=== PATIENT | male | born 1975 | race Caucasian/White ===

== ENCOUNTER 2017-10-05 04:17 | Emergency (ER) | payer SELFPAY ==
--- NOTE | 2017-10-05 04:17 | DT_ITS ---
This patient was seen during an EMR downtime October 02, 2017 - October 09, 2017. This patient may have a combination of paper and electronic documentation or all paper documentation. All documentation is viewable within the e-chart portion of [facility] for each patient visit.
== END 2017-10-05 05:15 | disposition home or self-care (01) ==
PROVIDERS: Emergency Provider Emergency Medicine
DX: S39.012A Strain of muscle, fascia and tendon of lower back, initial encounter (principal); X58.XXXA Exposure to other specified factors, initial encounter; Y93.89 Activity, other specified; I10 Essential (primary) hypertension; Z72.0 Tobacco use
CPT/HCPCS: 96372; 99282; J2405

== ENCOUNTER 2017-10-06 06:47 | Emergency (ER) | payer SELFPAY ==
--- NOTE | 2017-10-06 06:47 | DT_ITS ---
This patient was seen during an EMR downtime October 02, 2017 - October 09, 2017. This patient may have a combination of paper and electronic documentation or all paper documentation. All documentation is viewable within the e-chart portion of [facility] for each patient visit.
--- NOTE | 2017-10-06 07:35 | RAD_ITS ---
STUDY: X-RAY - PELVIS AND LEFT HIP REASON FOR EXAM: Male, 42 years old. Pain after moving furniture. TECHNIQUE: Radiological exam, hip, unilateral, with pelvis when performed; 2 or 3 views. COMPARISON: None. FINDINGS: There is a non-specific bowel gas pattern. Normal visualized soft tissue structures. There are mild degenerative changes of the visualized lower lumbar spine. There is narrowing with cortical sclerosis of the lower right sacroiliac joint, consistent with degenerative osteoarthritic changes. Normal iliac wings and visualized sacrum. Normal bilateral superior and inferior pubic rami. Normal pubic symphysis. Normal bilateral ischial tuberosities. There are early osteoarthritic changes of the femoral head with very small marginal osteophyte formation. There is minor osteoarthritic spur formation of the acetabular rim. There is mild to moderate articular joint space narrowing of the hip. There is no demonstrated acute fracture. RAD/Hip 2-3 Views with Pelvis IMPRESSION: No fracture of the pelvis or left hip. There are mild degenerative changes of the spine and pelvis, as described. Electronically Signed: Sascha Mcintosh MD at 13:08 EDT , Service support ,
--- NOTE | 2017-10-06 07:35 | RAD_ITS ---
STUDY: X-RAY - LUMBAR SPINE REASON FOR EXAM: Male, 42 years old. Pain after moving temperature. TECHNIQUE: 3 view(s) of the lumbar spine were obtained. COMPARISON: None FINDINGS: Normal lumbar lordosis. There is a 6.5 degree levoscoliosis centered at L3-4. There is a normal alignment of the vertebrae. There are large anterior endplate osteophytes at L3-4, with more minor anterior endplate spurring at L2-3, L4-5, and L5-S1. There is mild to moderate degenerative disc height narrowing at L3-4, as well as borderline to mild narrowing at L4-5 and L5-S1. There is no demonstrated fracture. Degenerative changes suggested in the L4-5 and L5-S1 facet articulations as well as the lower right sacroiliac joint. The soft tissue structures are unremarkable. RAD/Lumbar Spine 2 or 3 Views IMPRESSION: No acute fracture of the lumbar spine. Degenerative changes of the spine, as detailed above. Electronically Signed: Sascha Mcintosh MD at 13:06 EDT , Service support ,
== END 2017-10-06 08:30 | disposition home or self-care (01) ==
LOC: ED 12:36
DX: M54.5 Low back pain (principal); Z72.0 Tobacco use
CPT/HCPCS: 72100; 73502; 96372; 99282

== ENCOUNTER 2018-06-24 08:38 | Emergency (ER) | payer OTHER, SELFPAY ==
[2018-06-24 08:39] VITALS: BP 152/92; PULSE 106; RESP 16; TEMP 36.4; O2SAT 97; BMI 42.2
--- NOTE | 2018-06-24 09:01 | ED.DCSUM_ITS ---
- ER Visit Summary Date of Service: 06/24/18 Chief Complaint: Left posterior shoulder and left lateral neck discomfort History of Present Illness: The patient is a 42 M past medical history of hypertension. Patient comes in because he says for the last 2-3 weeks he has had left lateral neck and left posterior shoulder discomfort. States it feels like a sore muscle. It is worse with movement of his shoulder or rotation of his neck. He denies any falls or trauma. No fever. No prior neck neck surgery . He denies any numbness or weakness to his left arm. He also states he wants to be set up with a primary care physician. He is currently out of his hydrochlorothiazide that he takes for hypertension. And lastly he was to follow-up with the counseling center for outbursts and depression but denies being suicidal. Physical Examination: Well-appearing middle-age male. Initial blood pressure is 152/92. He does not look septic or toxic or in any distress. He is awake alert. He is talkative. His significant other is at bedside. HEENT exam unremarkable. Neck mild left lateral trapezius tenderness. Spine nontender. Normal range of motion. Trachea midline. No lymphadenopathy. Lungs clear to auscultation bilaterally. Heart regular rate and rhythm no murmur rate about 90. Abdomen soft and nontender. Normal bowel sounds. No peritoneal signs. Patient is moving all 4 extremities. Neurovascularly intact. He has 5 out of 5 instructor ballroom dancing strength. Dorsi plantar flexion intact. No edema specifically the left shoulder posteriorly is soft tissue tenderness. There is no gross bony deformity. No redness or warmth. He has full AB and adduction of the shoulder. He has normal internal and external rotation. He has some discomfort with rotation of the shoulder. There is no signs of a rotator cuff tear. Back exam there is no spine tenderness. There is left trapezius and posterior shoulder tenderness. Neurologically is awake alert with no focal motor weakness. Test Results: None Emergency Department Course and Treatment: Patient referred to a PCP. He will be referred to the counseling center. He will be written for hydrochlorothiazide for his hypertension. He will be written for Skelaxin for his muscle spasm in his neck and left shoulder. Treatment Plan: Skelaxin for muscle relaxation. Hydrochlorothiazide for blood pressure. Disposition: Discharge Impression: Left shoulder and neck muscle strain and spasm Med refill for antihypertension medication Referral to PCP and counseling center This note was generated with [employer] dictation software. It may contain incorrect words, spelling, and punctuation that were not noted in review of the chart prior to signing ED Disposition - Plan for ED Patient: Referrals: Care Physician,No Primary [Primary Care Provider] -
--- NOTE | 2018-06-24 09:01 | ED.DEP ---
ED Disposition - Plan for ED Patient: Disposition: Home or Assisted Living Instructions: ED Sprain Strain Neck Prescriptions: Hydrochlorothiazide [Hctz] 25 mg PO DAILY #30 tab Metaxalone [Skelaxin] 800 mg PO TID #20 tab Referrals: David Verduzco MD [STAFF PHYSICIAN] - As soon as possible Counseling,Center [GROUP OF PHYSICIANS] - As soon as possible Additional Instructions: Stop smoking. Skelaxin 1 pill 3 times a day to relax the muscles in your neck and left shoulder. Motrin and Tylenol for pain. Hydrochlorothiazide medication refill for your blood pressure. Follow-up with the counseling center. On follow-up with a local primary care physician I referred you to Dr. Vaibhav Verduzco.
== END 2018-06-24 09:14 | disposition home or self-care (01) ==
LOC: ED 09:13
PROVIDERS: Emergency Provider Emergency Medicine
DX: S46.912A Strain of unspecified muscle, fascia and tendon at shoulder and upper arm level, left arm, initial encounter (principal); S16.1XXA Strain of muscle, fascia and tendon at neck level, initial encounter; X58.XXXA Exposure to other specified factors, initial encounter; Y93.9 Activity, unspecified; Y92.9 Unspecified place or not applicable; M62.838 Other muscle spasm; Z76.0 Encounter for issue of repeat prescription; I10 Essential (primary) hypertension; Z72.0 Tobacco use
CPT/HCPCS: 99282

== ENCOUNTER 2018-06-29 08:49 | Outpatient (RCR) | payer OTHER, SELFPAY ==
--- NOTE | 2018-06-29 10:56 | BH.NA ---
Physical Data - Vital Signs Pulse Rate: 108 Respiratory Rate: 16 Blood Pressure: 137/100 - Height/Weight Height: 1.85 m Weight:: 147.418 kg Weight in Pounds: 325.0 lbs Current Medication Compliance - Medication Compliance Do you take your medication as prescribed?: Yes Do you need assistance with taking medication?: No Have you had side effects from medication?: No Nutritional History - Appetite Nutritional Instructions:: If client shows signs of a swallowing problem, weight change of 10 pounds or more in the last month, or is on a diabetic diet, the physician will review and request a dietitian consult, as appropriate. All unintentional weight loss will be referred to the physician for decision on need for dietitian consult. Describe your appetite:: Fair Have you noticed a change in your eating habits lately?: No Functional Assessment - Sleep Pattern Describe any problems with sleeping: Client reports difficulty falling and staying asleep related to ruminating and racing thoughts. - Activities Motor Activity:: Functional Sensory/Communication Assess - Hearing Problems Do you have any hearing problems?: Adequate - Communication Problems Do you have difficulty understanding what people are saying?: No Do you have trouble putting your thoughts into words or expressing what you want to say?: Yes Do people ever have trouble understanding what you say?: No What is your primary language?: Slovenian Learning Assessment - Education What is your level of education?: Some College - Learning Barriers Learning Barriers:: Ready to learn Medical Problems/History - Cardiac Conditions Cardiovascular: Hypertension - Pain Assessment Do you have acute or chronic pain?: No Substance Abuse - Substance Abuse Please describe substance abuse in the last 30 days:: Client describes daily marijuana use. 1ppd cigarettes daily. Rare ETOH use. Suicide Assessment - Suicidal Ideation Are you currently or have you been suicidal in the past?: No Physician Notification: If Active suicidal thoughts/Will not contract for safety is checked, contact physician and document in the Physician Notification section below. Past Psychiatric History - MH Treatment Hx Current providers for mental health treatment (counselor, psychiatrist, correctional counselor/case manager, etc.): No prior treatment Fall Risk Assessment - Age Age: Less than 60 - Mental Status Mental Status: Willing & able to ask for assistance when needed - Physical Status Physical Status: No problems - Impairments Impairments: None - Elimination Elimination: Continent AND independent - Gait or Balance Gait or Balance: Walks independently - Hx of Falls History of falls in the past 6 months: No known history - Medications/Substances Psychotropics:: Antidepressants Others:: Antihypertensives Medications/substances used within the past 24 hours or ordered to administer: 1-2 of the medications/substances listed above - Total Score Total Points:: 1 Physician Notification - Physician Notification Physician Notified: Seven Verma Method of Notification: Face to Face Comments: treatment planning recommendations RN Summary of Impressions - Impressions Recommendations: Include psychiatric and medical issues, treatment planning recommendations, and discharge planning needs. Impressions: Psychiatric Issues: MDD, anxiety Impression: General Medical Conditions: HTN, morbid obesity, insomnia - Level of Care How do the client's current symptoms and functional deficits support need for this level of care?: Anthony notes that he has been decompensating for approximately 4 weeks. He notes that this comes after recently from his and not having any contact with his daughter. His mental health symptoms are adversely effecting his ability to work, thus his financial state. He describes poor motivation, isolative behaviors, and decreased ADLs. Client also describes social anxiety, something new for him, and anger outbursts over the littlest thing, which he notes is also out of character for him. IOP will provide social support and encourage gains.
--- NOTE | 2018-06-29 11:35 | BH.SGPN.GN ---
Behaviors/Verbalizations/Mental Status: []Client alert and oriented, casual dress, hygiene good. Eye contact good. Motor activity appropriate. Speech within normal limits. Affect congruent, mood anxious and depressed. Thoughts linear, logical, no signs of hallucinations or delusions. Client Response/Progress/Benefit: []Client listened attentively to peers and at times contributed to discussion if elicited pt therapist. Client identified his personal barriers that get in the way of him reaching his desired reality for mental health to be over-thinking, isolating, and depression. Client worked cooperatively with peers during activity, but did not contribute his thoughts when brainstorming strategies to overcome barriers. Client seemed to benefit from learning about various strategies that can help overcome barriers to progress. Client's first day in IOP, which could contribute to pt's passive participation. Client to continue IOP level of care to decrease depression, increase healthy coping, and prevent decompensation. Narrative Note: []
--- NOTE | 2018-06-29 12:16 | PCM.HP.BLA ---
History and Physical Date of Admission: 06/29/18 Chief Complaint: The patient is a 42-year old male who is beginning treatment in the intensive outpatient mental health treatment program at [facility]. He reports worsening depression and anxiety as well as insomnia. History of Present Illness: The patient stated that he has had smaller episodes of depression before which lasted 1 or 2 days. However, over the past 2-3 months he has become increasingly depressed and his depression is not going away. His depression worsened to the point where he could not continue working. He is now depressed every day. His sleep is poor. His appetite has decreased but his weight is steady. He has low energy and no motivation. He denies crying spells. He is not able to enjoy things in life. He has been very irritable. He said he recently flew off the handle at his brother for no good reason and has also had angry outbursts directed towards his girlfriend, even though she did not deserve it. His concentration is poor. He does have hope for the future and he denied suicidal thoughts. The patient also reports worsening anxiety over the past few months. He has not wanted to be around people and being around more than a few people makes him anxious. Previously was doing just fine being around people. Past Psychiatric History: The patient has never been admitted to a psychiatric hospital and he denies any history of suicide attempts. He has never previously received any mental health treatment. Current Psychiatric Medications: None Medical History: The patient is obese. He has hypertension treated with medication, and also takes a water pill. Allergies no known drug allergies Family Psychiatric History: The patient was adopted. He is not aware of any mental health problems in his biological family. Personal/Social History: The patient was adopted when he was 6-8 months years old. He has no information about his biological family. He said that his adoptive mother was kind and his adoptive father was strict. He has an adoptive sister. He went up to the 10th grade in school but did obtain a GED. 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 He said he usually loves his job. Heis working for [employer]. He was not able to continue working about a week ago because of depression. He did not want to leave the home and had no motivation to continue working. The patient has been from his for the past 8years. He has been together with his girlfriend for the past 3 years. He said that the relationship was good before he developed depression. Has recently been aggressively irritable toward her. He said that she does not deserve this irritability. He has 3 children and 2 grandchildren. He pays child support for a 9-year-old daughter is living with her mother. He also has an 18-year-old and a 21-year-old from a previous relationship. Substance abuse history: The patient says that he was a heavy drinker from about 1994 until 1999. He now only drinks occasionally and not to excess. He started smoking marijuana when he was younger. His use has increased over the past few months as a way to self medicate. He denies use of any other illegal drugs. Review of Systems: Psychiatry: Worsening depression and anxiety as per HPI. He is not suicidal. There is no psychosis. He is cognitively intact. Constitutional: He is obese and his weight has been steady. His energy level is low. He also has hypertension and neck pain. All other systems reviewed and are negative. Examination: The patient presents as a pleasant, personable male of obese build who wears short hair and glasses. He demonstrates good social skills. Vital signs: Height: 6 foot 1 inch; weight 325 pounds; respirations 16. His speech is fluent and spontaneous. His language is intact. His judgment and insight are intact. He is alert and oriented x3. His affect is cordial and appropriate. His recent and remote memory are intact. He demonstrates normal attention span and concentration. He has normal thought processes and abstract reasoning. His associations are intact. There are no hallucinations or delusions and he is not suicidal. He demonstrates normal age-appropriate fund of knowledge. Mental Status Examination: The patient presents as a pleasant, personable male of obese build who is casually dressed and appropriately groomed. He demonstrates good social skills. His thoughts are logical and coherent. He reported worsening depression and anxiety as per HPI. He is not suicidal. There is no psychosis. He is cognitively intact. Diagnoses: [] [place] I: Major depression, single episode, severe; anxiety disorder and specified; insomnia [place] II: Deferred [place] III: Obesity, hypertension Plan: I am prescribing Prozac 10 mg every morning and trazodone 100 mg nightly as needed. Patient will participate in the intensive outpatient groups. I will see him for follow-up.
--- NOTE | 2018-06-29 12:42 | HP.PCM_ITS ---
History and Physical Date of Admission: 06/29/18 Chief Complaint: The patient is a 42-year old male who is beginning treatment in the intensive outpatient mental health treatment program at [facility] He reports worsening depression and anxiety as well as insomnia. History of Present Illness: The patient stated that he has had smaller episodes of depression before which lasted 1 or 2 days. However, over the past 2-3 months he has become increasingly depressed and his depression is not going away. His depression worsened to the point where he could not continue working. He is now depressed every day. His sleep is poor. His appetite has decreased but his weight is steady. He has low energy and no motivation. He denies crying spells. He is not able to enjoy things in life. He has been very irritable. He said he recently flew off the handle at his brother for no good reason and has also had angry outbursts directed towards his girlfriend, even though she did not deserve it. His concentration is poor. He does have hope for the future and he denied suicidal thoughts. The patient also reports worsening anxiety over the past few months. He has not wanted to be around people and being around more than a few people makes him anxious. Previously was doing just fine being around people. Past Psychiatric History: The patient has never been admitted to a psychiatric hospital and he denies any history of suicide attempts. He has never previously received any mental health treatment. Current Psychiatric Medications: None Medical History: The patient is obese. He has hypertension treated with medication, and also takes a water pill. Allergies no known drug allergies Family Psychiatric History: The patient was adopted. He is not aware of any mental health problems in his biological family. Personal/Social History: The patient was adopted when he was 6-8 months years old. He has no information about his biological family. He said that his adoptive mother was kind and his adoptive father was strict. He has an adoptive sister. He went up to the 10th grade in school but did obtain a GED. 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 He said he usually loves his job. Heis working for [employer]. He was not able to continue working about a week ago because of depression. He did not want to leave the home and had no motivation to continue working. The patient has been from his for the past 8years. He has been together with his girlfriend for the past 3 years. He said that the relationship was good before he developed depression. Has recently been aggressively irritable toward her. He said that she does not deserve this irritability. He has 3 children and 2 grandchildren. He pays child support for a 9-year-old daughter is living with her mother. He also has an 18-year-old and a 21-year-old from a previous relationship. Substance abuse history: The patient says that he was a heavy drinker from about 1994 until 1999. He now only drinks occasionally and not to excess. He started smoking marijuana when he was younger. His use has increased over the past few months as a way to self medicate. He denies use of any other illegal drugs. Review of Systems: Psychiatry: Worsening depression and anxiety as per HPI. He is not suicidal. There is no psychosis. He is cognitively intact. Constitutional: He is obese and his weight has been steady. His energy level is low. He also has hypertension and neck pain. All other systems reviewed and are negative. Examination: The patient presents as a pleasant, personable male of obese build who wears short hair and glasses. He demonstrates good social skills. Vital signs: Height: 6 foot 1 inch; weight 325 pounds; respirations 16. His speech is fluent and spontaneous. His language is intact. His judgment and insight are intact. He is alert and oriented x3. His affect is cordial and appropriate. His recent and remote memory are intact. He demonstrates normal attention span and concentration. He has normal thought processes and abstract reasoning. His associations are intact. There are no hallucinations or delusions and he is not suicidal. He demonstrates normal age-appropriate fund of knowledge. Mental Status Examination: The patient presents as a pleasant, personable male of obese build who is casually dressed and appropriately groomed. He demonstrates good social skills. His thoughts are logical and coherent. He reported worsening depression and anxiety as per HPI. He is not suicidal. There is no psychosis. He is cognitively intact. Diagnoses: [] [place] I: Major depression, single episode, severe; anxiety disorder and specified; insomnia [place] II: Deferred [place] III: Obesity, hypertension Plan: I am prescribing Prozac 10 mg every morning and trazodone 100 mg nightly as needed. Patient will participate in the intensive outpatient groups. I will see him for follow-up.
--- NOTE | 2018-06-29 12:42 | BH.DR.ITP ---
Initial Treatment Plan - Patient Information Visit Information: ADMISSION DATE: 06/29/18 EXPECTED LOS: 4-6 weeks Diagnoses:: Major depression; anxiety disorder unspecified - Problems/Symptoms Problem #1:: depression Symptom:: low mood; lack of motivation; irritability Problem #2:: anxiety Symptom:: gets stressed out easily around groups of people; feels anxious
--- NOTE | 2018-07-02 09:03 | BH.SGPN.GN ---
Behaviors/Verbalizations/Mental Status: []Client alert and oriented, casually dressed and neatly groomed. Eye contact good. Motor activity appropriate. Speech tangential. Affect full, mood euthymic. Thoughts linear, logical, no signs of hallucinations or delusions. Reviewed client?s symptom tracker, no risk for suicidal ideation, plan, or intent as of 07/02/18. Client Response/Progress/Benefit: []Client responded well to session, positive and supportive to peers. Client reports feeling excited today after multiple mental health wins this weekend. Client shared the weekend started bad as client got fired from his job. However, client shared normally I would have cussed someone out but instead client used healthy coping skills and distracted himself with cooking and breathing. 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 Client stated I really appreciate the people who were here in group Monday as client shared all the ideas and support he received helped client be successful in coping well over the weekend. Client appeared to benefit from connecting with peers and reflecting on his positives. Progress noted as client reported using healthy coping skills this weekend. Client's second day in IOP. Client to continue to promote mood stability and increase emotional regulation.
--- NOTE | 2018-07-02 10:15 | BH.PSA ---
Source of Information - Presenting Problems/Circumstances Problems, Referral Source, Mental Status, Client: Referred by [facility] due to worsening depression and MH symptoms impacting ability to function on a daily basis. Alert and oriented. Psychiatric Presentation - Psych Issues & Need for Admission Psychiatric Issues:: Depression, anxiety, anger management issues, insomnia Past Psychiatric History - MH Treatment Hx Treatment History: Pt reports anger management classes in 1993. First hospitalization:: denies Most recent hospitalization:: denies Medication Trials:: No ECT Therapy:: No Age of first mental health symptoms: Pt reports looking back I've mostly likely been depressed for several years. Reports anger issues, isolation, and depression throughout his life. Describe (age, circumstance, etc) any past hospitalizations: n/a Current providers for mental health treatment (counselor, psychiatrist, case picker, etc.): none currently Development & Family of Origin - Childhood Significant Childhood Events: Pt was adopted when he was 6-8 months. Does not know his biological parents. Denies any abuse however reports conflicted realtionship with his father who was very strict, demanding, and at times overbearing. - Family Who currently lives in your home?: Currently lives with fiance and pt's adopted brother Describe family composition:: Adopted when pt was 6-8 months old. Adopted mother is . Adopted father is alive however conflicted relationship. Live with adopted brother who is older. Remains close with younger adopted sister. from 8 years ago. Has 3 children 9,18, and 21. The children live with thier mother. - Family History Family Hx of Psychiatric or AOD Problems: adopted Ethnicity - Culture Do you identify yourself with any particular cultural, ethnic background, or community?: No - Sexuality Sexual Orientation: Heterosexual Spirituality - Yazidi Do you currently identify with any organized jewish?: None - Beliefs Is there a particular form of support from this community you can use for your recovery?: No Mental Status - Memory Recent Memory: Fair Remote Memory: Fair - Concentration Concentration: Fair - Eye Contact Eye Contact: Fair - Speech Speech: Articulate - Thought Process Thought Process: Logical, Ruminations Insight: Fair Judgment: Fair Behavior: Normal - Orientation Orientation: Time, Person, Place, Situation - Appearance Appearance: Disheveled - Mood Mood: Anxious, Depressed, Mood swings, Irritable - Affect Affect: Alert, Appropriate/calm Suicide Assessment - Suicidal Ideation Have you ever felt like hurting yourself?: No Were you using ETOH/drugs at the time?: No Suicidal Intentional Rating Scale (SIRS): No suicidal thoughts (past or present) Physician Notification: If Active suicidal thoughts/Will not contract for safety is checked, contact physician and document in the Physician Notification section below. Violent Behavior/Abuse History - Homicidal Ideation Do you have any homicidal thoughts? If so, explain:: No Is there a known potential victim? If yes, who:: No - Abuse Have you ever been abused?: No - Life Events Are there any other significant life events?: Financial loss, Hardships Describe significant life events: Pt learned on 06/29/18 that he was terminated from his job due to not showing up due to MH symptoms. - Safety Do you ever feel threatened in your home? If yes, describe:: No Adult Social History - Age 18 to Present Describe your current support system:: Adopted brother and fiance. Substance Use - Substance Substance Use Type: Alcohol, Marijuana - Specific Drugs What specific drugs have you used?: Alcohol and Cannabis - Extent of Use What quantity of substances have you used?: Reports daily use of cannabis and alcohol use in social situations. Reports alcohol use about 1x weekly. - Duration of Use How long have you used substances?: Reports that he was a heavy drinker between 1994- 1999. Has been smoking cannabis and drinking alcohol since he was younger. - Last Usage What is the date and situation you last used?: Cannabis- yesterday. Alcohol- last week - Withdrawal History Comments:: denies withdrawal symptoms - IV Substance Use Do you have a history of IV use?: denies Leisure/Social Activities - Interests What do you enjoy or might be interested in learning about?: Ways to improve communication. Reports interested in decreasing anger and increasing assertive communication. 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 If yes, describe:: Yes - 5 months on [facility] - Court Orders Have you had any past court orders for psychiatric treatment?: No Do you have a present court order for psychiatric treatment?: No Problem Checklist - Current Problem Areas Problem List: Depressed mood/sad, Anxiety, Anger/aggression, Impulsivity, Sleep problems, Additional psychosocial stressors - recently lost job Discharge Planning Needs - Anticipated Follow-Up Mental Health Center (Name/Phone Number):: [facility] Assessment - Client's Needs What are the client's feelings about the program?: Pt reports that he enjoys the support and education in the program. Looking forward to learning. What are the client's goals?: Decrease isolative behaviors. Increase motivation and social activities. Improve communication with other. Anger mgmt What are the client's strengths?: good trouble-shooter. good at being a office mover Diagnoses - Diagnoses Diagnosis #1:: Major Depressive Disorder, single, severe Diagnosis #2:: Anxiety Disorder, unspecified Interpretive Summary - Interpretive Summary Interpretive Summary: Pt is a 42 year old male. Hx of Depression per pt report. No previous psychiatric treatment. Worsening depression for the past 4 weeks which as led to inability to work. Due to depression pt has missed the last week of work. Reports depressive symptoms also impacting relationships and social functioning. Pt reports I can't fix myself ... I lay in bed all day. Endorses decreased sleep, no energy, no motivation, decreased concentration, decreased focus, increased irritability, anger outbursts, no pleasure in activities, and hoplessness. Denies suicidal ideations, plan, or intent. No hx of attempts. Pt states I'm not suicidal but I feel it may get there. Informed employer that due to emotions he is unable to work. Referred to IOP by crisis. Denies HI or psychosis. Occasional panic attacks. Treatment Plan Recommendations - Recommendations Guidelines: Special needs identified to be included in the development of an individualized treatment plan regarding past psychiatric history and treatment, developmental events, family relationships/events/culture, past and/or current educational, occupational, social, and residential experience, and legal status. Recommendations:: Based on worsening depression, MH symptoms interfering with social familial, and work functioning, and decreased ability to function recommended IOP level of care.
--- NOTE | 2018-07-02 11:59 | BH.PSA_ITS ---
Source of Information - Presenting Problems/Circumstances Problems, Referral Source, Mental Status, Client: Referred by [facility] due to worsening depression and MH symptoms impacting ability to function on a daily basis. Alert and oriented. Psychiatric Presentation - Psych Issues & Need for Admission Psychiatric Issues:: Depression, anxiety, anger management issues, insomnia Past Psychiatric History - MH Treatment Hx Treatment History: Pt reports anger management classes in 1993. First hospitalization:: denies Most recent hospitalization:: denies Medication Trials:: No ECT Therapy:: No Age of first mental health symptoms: Pt reports looking back I've mostly likely been depressed for several years. Reports anger issues, isolation, and depression throughout his life. Describe (age, circumstance, etc) any past hospitalizations: n/a Current providers for mental health treatment (counselor, psychiatrist, patient case coordinator, etc.): none currently Development & Family of Origin - Childhood Significant Childhood Events: Pt was adopted when he was 6-8 months. Does not know his biological parents. Denies any abuse however reports conflicted realtionship with his father who was very strict, demanding, and at times overbearing. - Family Who currently lives in your home?: Currently lives with fiance and pt's adopted brother Describe family composition:: Adopted when pt was 6-8 months old. Adopted mother is . Adopted father is alive however conflicted relationship. Live with adopted brother who is older. Remains close with younger adopted sister. from 8 years ago. Has 3 children 9,18, and 21. The children live with thier mother. - Family History Family Hx of Psychiatric or AOD Problems: adopted Ethnicity - Culture Do you identify yourself with any particular cultural, ethnic background, or community?: No - Sexuality Sexual Orientation: Heterosexual Spirituality - Adventist Do you currently identify with any organized orthodox?: None - Beliefs Is there a particular form of support from this community you can use for your recovery?: No Mental Status - Memory Recent Memory: Fair Remote Memory: Fair - Concentration Concentration: Fair - Eye Contact Eye Contact: Fair - Speech Speech: Articulate - Thought Process Thought Process: Logical, Ruminations Insight: Fair Judgment: Fair Behavior: Normal - Orientation Orientation: Time, Person, Place, Situation - Appearance Appearance: Disheveled - Mood Mood: Anxious, Depressed, Mood swings, Irritable - Affect Affect: Alert, Appropriate/calm Suicide Assessment - Suicidal Ideation Have you ever felt like hurting yourself?: No Were you using ETOH/drugs at the time?: No Suicidal Intentional Rating Scale (SIRS): No suicidal thoughts (past or present) Physician Notification: If Active suicidal thoughts/Will not contract for safety is checked, contact physician and document in the Physician Notification section below. Violent Behavior/Abuse History - Homicidal Ideation Do you have any homicidal thoughts? If so, explain:: No Is there a known potential victim? If yes, who:: No - Abuse Have you ever been abused?: No - Life Events Are there any other significant life events?: Financial loss, Hardships Describe significant life events: Pt learned on 06/29/18 that he was terminated from his job due to not showing up due to MH symptoms. - Safety Do you ever feel threatened in your home? If yes, describe:: No Adult Social History - Age 18 to Present Describe your current support system:: Adopted brother and fiance. Substance Use - Substance Substance Use Type: Alcohol, Marijuana - Specific Drugs What specific drugs have you used?: Alcohol and Cannabis - Extent of Use What quantity of substances have you used?: Reports daily use of cannabis and alcohol use in social situations. Reports alcohol use about 1x weekly. - Duration of Use How long have you used substances?: Reports that he was a heavy drinker between 1994- 1999. Has been smoking cannabis and drinking alcohol since he was younger. - Last Usage What is the date and situation you last used?: Cannabis- yesterday. Alcohol- last week - Withdrawal History Comments:: denies withdrawal symptoms - IV Substance Use Do you have a history of IV use?: denies Leisure/Social Activities - Interests What do you enjoy or might be interested in learning about?: Ways to improve communication. Reports interested in decreasing anger and increasing assertive communication. 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 If yes, describe:: Yes - 5 months on [facility] - Court Orders Have you had any past court orders for psychiatric treatment?: No Do you have a present court order for psychiatric treatment?: No Problem Checklist - Current Problem Areas Problem List: Depressed mood/sad, Anxiety, Anger/aggression, Impulsivity, Sleep problems, Additional psychosocial stressors - recently lost job Discharge Planning Needs - Anticipated Follow-Up Mental Health Center (Name/Phone Number):: [facility]BD [facility]'s Assessment - Client's Needs What are the client's feelings about the program?: Pt reports that he enjoys the support and education in the program. Looking forward to learning. What are the client's goals?: Decrease isolative behaviors. Increase motivation and social activities. Improve communication with other. Anger mgmt What are the client's strengths?: good trouble-shooter. good at being a maintenance plumber Diagnoses - Diagnoses Diagnosis #1:: Major Depressive Disorder, single, severe Diagnosis #2:: Anxiety Disorder, unspecified Interpretive Summary - Interpretive Summary Interpretive Summary: Pt is a 42 year old male. Hx of Depression per pt report. No previous psychiatric treatment. Worsening depression for the past 4 weeks which as led to inability to work. Due to depression pt has missed the last week of work. Reports depressive symptoms also impacting relationships and social functioning. Pt reports I can't fix myself ... I lay in bed all day. Endorses decreased sleep, no energy, no motivation, decreased concentration, decreased focus, increased irritability, anger outbursts, no pleasure in activities, and hoplessness. Denies suicidal ideations, plan, or intent. No hx of attempts. Pt states I'm not suicidal but I feel it may get there. Informed employer that due to emotions he is unable to work. Referred to IOP by crisis. Denies HI or psychosis. Occasional panic attacks. Treatment Plan Recommendations - Recommendations Guidelines: Special needs identified to be included in the development of an individualized treatment plan regarding past psychiatric history and treatment, developmental events, family relationships/events/culture, past and/or current educational, occupational, social, and residential experience, and legal status. Recommendations:: Based on worsening depression, MH symptoms interfering with social familial, and work functioning, and decreased ability to function recommended IOP level of care.
--- NOTE | 2018-07-02 13:52 | BH.MDN ---
Multi-Disciplinary Note - Note 60-min Individual Time Started:: 10:15 Date: 07/02/18 Purpose of session/treatment goals addressed:: Utilized the session to begin treatment planning. Eye Contact:: Good Motor Activity:: Restless Appearance:: Disheveled Speech:: Appropriate Mood:: Anxious, Irritable, Depressed Affect:: Congruent Thoughts:: Linear, Logical, Flight of ideas Staff Interventions:: Utilized TN techniques to elicit change behaviors. Began to work on developing treatment plan goals. Praised pt for utilizing skills. Client Response:: Pt actually reports progress after only one day of IOP. Reports that he utilized skills that he learned on 06/29/18 over the weekend with improvement in mood. Reports that he was fired from his job on 06/29/18 which was a shock. He reports I actually handled things well which he reports is not typical. States that his fiance was surprised. Pt reports increased awareness of how his irritability and anger is impacting his functioning as well as his depression. Showed insight that his mood is based on external things and others which makes him feel like he cannot control his emotions. ABle to keep his anger and depression under control despite upsetting news. Believes that groups, support, and medications have been helpful. Risks/Concerns:: No risks or concerns noted. Progress Toward Goals/Plan:: Progress noted per pt report. Reports increase in assertive communication, decrease in anger, improvement in sleep, and decreased depressive symptoms. Continues to report depression which is overwhelming however is able to note improvement. Will continue in IOP to improve functioning, prevent decompensation, and stabilize mood. Time Stopped:: 11:10
--- NOTE | 2018-07-06 09:05 | BH.SGPN.GN ---
Behaviors/Verbalizations/Mental Status: [Eye contact is good. Motor activity is appropriate. Appearance is disheveled ? clothing ill fitting. Speech is Appropriate. Mood is euthymic, positive. Affect is congruent, bright. Thoughts are linear and logical. No evidence of psychosis. Reviewed daily check in sheet with no reports of suicidal ideations or intent. ] Client Response/Progress/Benefit: [Client was an active participant in group discussion provided feedback throughout. Emotion for today is hopeful. Shared with the group mental health positives of being able to manage his emotions and prevent from dwelling on the negative given several stressors throughout the week including his water being shut off. Client identified various positives that came from being able to prevent from becoming angry. 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 Client is displaying some progress in his ability to regulate emotions. Will continue in IOP to increase coping skills, improve emotion regulation, and prevent decompensation. ] Narrative Note: []
--- NOTE | 2018-07-06 10:20 | BH.SGPN.GN ---
Behaviors/Verbalizations/Mental Status: []Client alert and oriented, disheveled appearance. Eye contact good. Motor activity appropriate. Speech within normal limits. Affect congruent, mood euthymic. Thoughts linear, logical, no signs of hallucinations or delusions. Client Response/Progress/Benefit: []Client responded well to session, actively contributing. Client engaged in discussion of stress and able to recognize that stress can be positive as it can keep a person safe and motivated on a task. However, if a person does not manage stress it can result in distress such as not being able to function and feeling angry. Client stated stress can impact a person physically, mentally, and emotionally. Client participated in identifying current stressors in his life. Client's current stressors include: bills, family and his kids, regulating emotions, ruminating, taking on everything, and work. Client stated he is not currently in distress as he has been feeling more in control since starting IOP. However, he recognized his warning signs for distress to be: yelling and making bad choices. Client appeared to benefit from gaining awareness to his current stressors and learning about the impact stress has on his overall wellbeing.
--- NOTE | 2018-07-06 11:15 | BH.SGPN.GN ---
Behaviors/Verbalizations/Mental Status: [] Eye contact is good. Motor activity is appropriate. Appearance is disheveled. Speech is Appropriate. Mood is euthymic. Affect is full. Thoughts are linear and logical. No evidence of psychosis. Client Response/Progress/Benefit: [] Pt was an active participant in group activity and discussion. Pt worked with the group to brainstorm barriers to coping with stress which included; using comfortable but ineffective skills, feeling frozen or stuck in the emotion, poor communication of needs/concerns, negative thinking, and focusing on worst case scenario. Along with the group identified strategies which are helping in coping with stress which included; teamwork, being OK with failing, clear and specific communication of needs, wants, and concerns, patience, challenging negative assumptions, being mindful, and developing a plan. Attentive during psycho-education on the four A's of stress (Adapt, alter, avoid, and accept) which are stress management strategies. Benefited from identifying barriers to managing stress and stress management strategies. Will continue in IOP to improve daily functioning, prevent decompensation, and stabilize mood. Narrative Note: []
--- NOTE | 2018-07-06 16:48 | BH.MDN ---
Multi-Disciplinary Note - Note 30-min Individual Time Started:: 12:04 Date: 07/06/18 Purpose of session/treatment goals addressed:: Purpose of session was to assess pt's current symptoms and stressors. Other topics: review of how first week in IOP and identifying IOP treatment goals. Eye Contact:: Good Motor Activity:: Appropriate Appearance:: Disheveled Speech:: Appropriate Mood:: Euthymic Affect:: Congruent Thoughts:: Linear, Logical, No evidence of hallucinations/delusions noted Staff Interventions:: Therapist utilized open ended questions to elicit pt's current symptoms and stressors. Therapist inquired pt's thoughts about how his first week in IOP. Therapist worked collaboratively with pt to identify treatment goals while in IOP. Provided support by validating emotions and listening attentively. Client Response:: Client reported his first week in IOP has gone great. Client stated he has learned so much in such a short time and has been focused on using the skills he has learned. Client stated the new medication is helping him sleep which client reported has been helpful to decrease his agitation. Client reported he has been able to challenge his thought process which has stopped him from flipping out. Client stated his water was shut off yesterday and typically he would have freaked out and yelled at someone as his way to express his feelings. 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 Client shared his brother and girlfriend are shocked with how much calmer client has been since starting IOP. Client shared while in IOP he would like to focus on continuing to learn healthy coping skills, have better awareness of his triggers and warning signs, and challenging negative thoughts. Client reported he has a job interview today and is hopeful he will be hired. Client stated he is unsure if he does get hired how much longer he will be able to stay in IOP. Client shared he is hoping to be able to work and come to [facility], but will not know until after his interview. Risks/Concerns:: Client denies suicidal ideation, plan or intention to date. Progress Toward Goals/Plan:: Client demonstrating progress as evidenced by client report of using healthy coping skills and improved ability to manage his emotions in the moment. Client identified for goals he wants to increase awareness of triggers and warning signs, improve ability to challenge negative thoughts, and increase use of healthy coping. Time Stopped:: 12:30
--- NOTE | 2018-07-06 17:04 | BH.COMM ---
Communication Note - Communication with Client Communication Note: Therapist called pt to check-in on interview and what pt's plan is for IOP. Left message for pt to return call.
--- NOTE | 2018-07-09 09:20 | BH.COMM ---
Communication Note - Communication with Client Communication Note: Pt no show/no called. This engineering writer called pt to check-in on what pt's plan is for IOP program. Left voicemail for pt to call back.
--- NOTE | 2018-07-09 10:47 | BH.DS ---
Discharge Summary - Demographics Date of Admission:: 06/29/18 Discharge Date: 07/09/18 Presenting Problems at Admission:: Pt presented to [facility] due to worsening depression, anxiety and insomnia. Pt reported being depressed everyday. Pt endorsed poor sleep, decreased appetite, increased irritability, low energy, no motivation, anhedonia, poor concentration. Pt stated he has hope for the future and he denied suicidal thoughts. Pt's anxiety worsening past few months which led to isolative behaviors. Discharge Diagnoses:: F 32.2 Major depression, single episode, severe; anxiety disorder unspecified; insomnia Reason for Discharge:: Pt did not show up to [facility] or return any phone calls from IOP therapist. Pt had reported on 07/06/18 he had a job interview and if he got the job he likely wouldn't be able to continue IOP. - Treatment Progress During Treatment & Response: Pt only attended [facility] for one week and in that week pt reported moderate progress. Pt reported decreased agitation, increased use of healthy coping skills, improved awareness of his negative thinking, and decreased anger outbursts. Pt responded well to group and individual sessions as evidenced by him contributing thoughts and ideas to discussion and being actively engaged in activities. Pt generalized the skills learned in sessions by practicing the skills in every day life. Issues Still to be Addressed:: Pt could benefit from continued work on decreasing depression, reinforcement of healthy coping skills, emotional reguation, and recognition of warning signs for depressed and anxious mood states. Discharge Recommendations/Instructions:: Pt did not return phone calls from IOP therapist so aftercare plan was not created. Discharge Handout: Complete Discharge Handout with client on aftercare options and continuity of care.
--- NOTE | 2018-08-08 10:47 | BH.DS_ITS ---
Discharge Summary - Demographics Date of Admission:: 06/29/18 Discharge Date: 07/09/18 Presenting Problems at Admission:: Pt presented to [facility] due to worsening depression, anxiety and insomnia. Pt reported being depressed everyday. Pt endorsed poor sleep, decreased appetite, increased irritability, low energy, no motivation, anhedonia, poor concentration. Pt stated he has hope for the future and he denied suicidal thoughts. Pt's anxiety worsening past few months which led to isolative behaviors. Discharge Diagnoses:: F 32.2 Major depression, single episode, severe; anxiety disorder unspecified; insomnia Reason for Discharge:: Pt did not show up to [facility] or return any phone calls from IOP therapist. Pt had reported on 07/06/18 he had a job interview and if he got the job he likely wouldn't be able to continue IOP. - Treatment Progress During Treatment & Response: Pt only attended [facility] for one week and in that week pt reported moderate progress. Pt reported decreased agitation, increased use of healthy coping skills, improved awareness of his negative thinking, and decreased anger outbursts. Pt responded well to group and individual sessions as evidenced by him contributing thoughts and ideas to discussion and being actively engaged in activities. Pt generalized the skills learned in sessions by practicing the skills in every day life. Issues Still to be Addressed:: Pt could benefit from continued work on decreasing depression, reinforcement of healthy coping skills, emotional reguation, and recognition of warning signs for depressed and anxious mood states. Discharge Recommendations/Instructions:: Pt did not return phone calls from IOP therapist so aftercare plan was not created. Discharge Handout: Complete Discharge Handout with client on aftercare options and continuity of care.
--- NOTE | 2018-08-08 11:07 | BH.COMM_ITS ---
Communication Note - Communication with Client Communication Note: Pt no show/no called. This television script writer called pt to check-in on what pt's plan is for IOP program. Left voicemail for pt to call back.
[2018-08-31 14:16] VITALS: BP 137/100; PULSE 108; RESP 16
== END 2018-07-11 14:00 | disposition home or self-care (01) ==
LOC: BHIOP 08:49
PROVIDERS: Referring Provider Psychiatry & Neurology Psychiatry; Visit Provider Psychiatry & Neurology Psychiatry
DX: F32.2 Major depressive disorder, single episode, severe without psychotic features (principal); F41.9 Anxiety disorder, unspecified; G47.00 Insomnia, unspecified; E66.9 Obesity, unspecified; I10 Essential (primary) hypertension; Z79.899 Other long term (current) drug therapy
CPT/HCPCS: H0035; 90832; 90837; 90853

== ENCOUNTER 2019-09-13 08:50 | Emergency (ER) | payer SELFPAY ==
[2019-09-13 08:51] VITALS: BP 203/89; PULSE 91; RESP 16; TEMP 36.6; O2SAT 96; BMI 46.1
[2019-09-13] MEDS: Tetracaine 0.5% Ophthalmic Bottle OPHTHALMIC (09:38)
[2019-09-13] MEDS: Fluorescein 1 MG STRIP 1 STRIP OPHTHALMIC (09:38)
--- NOTE | 2019-09-13 10:01 | ED.DCSUM_ITS ---
- ER Visit Summary Date of Service: 09/13/19 Chief Complaint: Foreign body sensation right eye History of Present Illness: The patient is a 44 M who reports that yesterday he was running a cast iron pipe and was wearing glasses. He does not have any sensation of foreign body then. He ports that in the evening he developed a foreign body sensation to his eyes. He rinse them off in the shower. However, he reports that this morning there is redness, continued foreign body sensation, photophobia. He reports his eyes have been tearing. He states he has blurred vision from his right eye. Patient wears glasses. He does not wear contacts. His tetanus is up-to-date. Physical Examination: Vitals: Stable. Afebrile. General: Well-nourished and well-developed. Head: Normocephalic atraumatic. Right eye: Upper eyelid was everted for exam. There is no foreign material under this. He has diffuse conjunctival injection. There are 3 small rust rings to the inferior medial portion of his cornea. There is no metallic foreign body present any longer. However, these do have fluorescein dye uptake. Neck: Supple, no lymphadenopathy. No JVD. Nontender. Cardiovascular: Regular rate and rhythm. No murmurs. Respiratory: No respiratory distress. Clear to auscultation bilaterally. Abdominal: Soft, nontender, nondistended, normal bowel sounds. No guarding, rebound, or peritoneal signs. Back: Nontender. Extremities: Nontender, no edema. Skin: Normal color, no rash. Neurologic: Alert and oriented ?3. Cranial nerves II through XII are intact. Normal strength and sensation. Psych: Normal affect. Emergency Department Course and Treatment: Patient had bacitracin ophthalmic placed. He is resting comfortably. Treatment Plan: Patient be discharged instructions to follow-up with Dr. Dunne in 3 to 5 days for removal of the rust rings. He will be placed on bacitracin at home. Return to the emergency department for any worsening symptoms. Disposition: To home in improved and stable condition. Impression: 1. Rust rings right cornea. This note was generated with [employer] dictation software. It may contain incorrect words, spelling, and punctuation that were not noted in review of the chart prior to signing ED Disposition - Plan for ED Patient: Disposition: Home or Assisted Living Instructions: ED Foreign Body Cornea W Rust Ring Referrals: Vipul Dunne MD [STAFF PHYSICIAN] - 3-5 Days
== END 2019-09-13 10:33 | disposition home or self-care (01) ==
LOC: ED 10:27
PROVIDERS: Emergency Provider Emergency Medicine
DX: T15.01XA Foreign body in cornea, right eye, initial encounter (principal); F17.200 Nicotine dependence, unspecified, uncomplicated
CPT/HCPCS: 99284

== ENCOUNTER 2022-03-02 09:47 | Emergency (ER) | payer SELFPAY ==
[2022-03-02 09:48] VITALS: BP 183/101; PULSE 75; RESP 16; TEMP 36.2; O2SAT 94; BMI 35.6
--- NOTE | 2022-03-02 09:58 | EDS_ITS ---
HPI History of Present Illness Chief Complaint: Rash Informant: patient Onset/Context/Timing Onset: Weeks Context: Gradual Onset Current Severity: Mild Maximum Severity: Moderate Narrative Narrative: Patient presents with pruritic rash to the distal right forearm. He states he first noted the rash 2 or 3 weeks ago. He thought it was just something that he had rubbed against while working on his car. The areas become itchy and he noticed that he is scratching himself open. Last night the local area was swollen. Swelling seems to be improved today. No fever or chills. Rashes not spread anywhere else. [facility] Medical History Anxiety disorder, unspecified BMI 40.0-44.9, adult Depression, major, single episode, severe HTN (hypertension) Insomnia Morbid (severe) obesity due to excess calories Home Medications prednisone 20 mg tablet 60 mg PO DAILY #15 tabs 03/02/22 [Rx Last Taken Unknown] Allergy/AdvReac Type Severity Reaction Status Date / Time No Known Allergies Allergy Verified 03/02/22 09:47 Social History Smoking Status: Current every day smoker tobacco type: cigarettes ROS ROS ED Constitutional Constitutional ED: Denies chills or fever(s) Eyes Eyes: Denies change in vision or discharge from eye(s) ENT ENT ED: Denies discharge from eye(s), rhinorrhea or sore throat Cardiovascular Cardiovascular: Denies chest pain or palpitations Respiratory/Chest Respiratory/Chest: Denies cough or dyspnea Gastrointestinal Gastrointestinal: Denies abdominal pain, nausea or vomiting Genitourinary Genitourinary ED: Denies dysuria Musculoskeletal Musculoskeletal: Denies back pain or extremity pain Integumentary Reports rash; Denies Abrasions Neurologic Neurologic: Denies headache(s) or weakness Psychiatric Psychiatric: Denies anxiety or depression Allergic/Immunologic Allergic/Immunologic ED: Denies lip swelling or urticaria EXAM Physical Exam Const Vital Signs: 03/02/22 09:48 Temperature 97.1 F L Temperature Source Temporal Pulse Rate 75 Respiratory Rate 16 Blood Pressure 183/101 H Blood Pressure Mean 128 Pulse Ox 94 Oxygen Delivery Method Room Air Positive well nourished and well developed General Appearance ED: well developed HEENT Reports normocephalic and head/scalp atraumatic Eyes PERRL and EOMs intact bilaterally Neck supple Chest Wall inspection of chest normal and palpation of chest normal Resp normal respiratory effort and clear to auscultation bilaterally Cardio regular rate and regular rhythm GI normal to inspection, nondistended, normoactive bowel sounds Palpation: soft Extremity Extremity Narrative: Faint erythematous rash to the distal radial right forearm. Several small scabbed areas from patient scratching his skin open. No sign of secondary infection. Full range of motion at all joints with no difficulty. Neuro oriented x3 and no sensory deficits noted Sensorium / Orientation: alert Motor Exam: strength 5/5 throughout Psych mental status grossly normal MDM MDM MDM Narrative Medical decision making narrative: Patient was started on steroid burst. Wound to be cleansed and dressed. I did recommend using Benadryl cream or hydrocortisone cream topically as well. Patient's blood pressure is noted to be elevated at 183/101 on arrival here. He does report a history of hypertension but is not on any medication and does not have a primary care physician. He is referred to establish primary care and we discussed the importance of getting his blood pressure under good control. Discharge Plan Triage Chief Complaint: Rash ED Provider: Paulina Mccann Dx/Rx/DC Orders Clinical Impression: Dermatitis, Hypertension Instructions: ED Contact Dermatitis, ED Hypertension, To Be Confirmed Prescriptions: New prednisone 20 mg tablet 60 mg PO DAILY Qty: 15 0RF Primary Care Provider: Care Physician,No Primary Referrals: Judy Thompson MD [Med Staff - Clinical Team Lead] - As soon as possible Care Physician,No Primary [Primary Care Provider] - Disposition Disposition: Home, Self Care
[2022-03-02] MEDS: predniSONE 20 MG Tablet 60 MG PO (10:17)
[2022-03-02 10:20] VITALS: BP 161/102; PULSE 77
[2022-03-02 10:26] VITALS: BP 161/102; PULSE 77
== END 2022-03-02 10:26 | disposition home or self-care (01) ==
PROVIDERS: Emergency Provider Emergency Medicine; Visit Provider Emergency Medicine
DX: L30.9 Dermatitis, unspecified (principal); E66.01 Morbid (severe) obesity due to excess calories; Z68.41 Body mass index [BMI] 40.0-44.9, adult; I10 Essential (primary) hypertension; F17.210 Nicotine dependence, cigarettes, uncomplicated
CPT/HCPCS: 99282

== ENCOUNTER 2022-08-23 09:25 | Emergency (ER) | payer SELFPAY ==
[2022-08-23 09:26] VITALS: BP 136/98; PULSE 80; RESP 18; TEMP 36.2; O2SAT 99; BMI 36.9
--- NOTE | 2022-08-23 09:35 | RAD_ITS ---
STUDY: X-RAY - RIGHT KNEE REASON FOR EXAM: Male, 46 years old. Knee injury following a fall. Pain. TECHNIQUE: 4 view(s) of the knee. COMPARISON: None. FINDINGS: Normal visualized distal femur. Normal visualized proximal tibia and fibula. Normal proximal tibiofibular articulation. Normal medial femorotibial compartment. Normal lateral femorotibial compartment. Normal patellofemoral articulation. The soft tissue structures are unremarkable. RAD/Knee 4 or More Views IMPRESSION: Normal x-ray examination of the knee. Electronically Signed: Jann Gregorio MD at 10:24 EDT ,
--- NOTE | 2022-08-23 09:36 | ED.VIS.LOWEX ---
HPI History of Present Illness Chief Complaint: Lower Extremity Injury Detail of Chief Complaint: Injury to the right knee Informant: patient Narrative Narrative: Patient presents to the emergency department with complaint of injury to the right knee that occurred this morning. Patient states that he stepped over a dog bone that his dog and left on the ground and when he did that he felt sudden onset of pain to the right lateral aspect of the knee and calf. He complains of some numbness and tingling down to the ankle. He is able to bear some weight. He did not fall as he was able to catch himself on the wall. [facility] Medical History Anxiety disorder, unspecified BMI 40.0-44.9, adult Depression, major, single episode, severe HTN (hypertension) Insomnia Morbid (severe) obesity due to excess calories Home Medications prednisone 20 mg tablet 60 mg PO DAILY #15 tabs 03/02/22 [Rx Last Taken Unknown] hydrocodone-acetaminophen 5-325mg 5mg-325mg 1 tab PO Q4H PRN PRN Pain 2 days #10 TABLETS 08/23/22 [Rx Last Taken Unknown] Allergy/AdvReac Type Severity Reaction Status Date / Time No Known Allergies Allergy Verified 08/23/22 09:26 Social History Smoking Status: Current every day smoker tobacco type: cigarettes ROS ROS ED Review of Systems ROS Unobtainable: other Constitutional Constitutional ED: Reports lethargy; Denies chills, fever(s), sweats or weight loss Eyes Eyes: Denies blurry vision, change in vision or diplopia ENT ENT ED: Denies rhinorrhea or sore throat Cardiovascular Cardiovascular: Denies chest pain, orthopnea or racing heartbeat Respiratory/Chest Respiratory/Chest: Denies cough, dyspnea, dyspnea on exertion, orthopnea or sputum Gastrointestinal Gastrointestinal: Denies abdominal pain, diarrhea, nausea or vomiting Genitourinary Genitourinary ED: Denies dysuria, hematuria or urinary frequency Musculoskeletal Musculoskeletal: Reports other Details: Right knee pain/injury ; Denies arthralgias, back pain, myalgias or neck pain Integumentary Denies abscess, Abrasions or rash Neurologic Neurologic: Denies headache(s) or weakness Psychiatric Psychiatric: Denies anxiety, depression or suicidal thoughts Endocrine Endocrinology: Denies polydipsia, polyphagia or polyuria Hematologic/Lymphatic Hematologic/Lymphatic: Denies easy bleeding, easy bruising or lymphadenopathy Allergic/Immunologic Allergic/Immunologic ED: Denies mouth swelling, tongue swelling or urticaria EXAM Physical Exam Const Vital Signs: 08/23/22 09:26 Temperature 97.1 F L Temperature Source Temporal Pulse Rate 80 Respiratory Rate 18 Blood Pressure 136/98 H Blood Pressure Mean 110 Pulse Ox 99 Oxygen Delivery Method Room Air Positive well nourished and well developed General Appearance ED: well developed and NAD HEENT Reports TM's clear and moist mucous membranes normocephalic and atraumatic; Negative for trauma or tenderness Tympanic Membrane ED: Yes TM's clear Eyes PERRL and EOMs intact bilaterally General Eye ED: Negative for pale conjunctiva or scleral icterus Neck no lymphadenopathy, supple and no JVD General: Negative for tenderness Chest Wall inspection of chest normal and palpation of chest normal Chest: Negative for tenderness Resp normal respiratory effort and clear to auscultation bilaterally Effort and Inspection: Negative for respiratory distress or pain with movement Auscultation: Negative for rhonchi, wheezes or diminished lung sounds Cardio regular rate, regular rhythm, S1 normal heart sound, S2 normal heart sound and no murmurs Peripheral Pulses: pulses 2+ throughout GI normal to inspection, nondistended, normoactive bowel sounds, soft to palpation, non-tender, non-distended and no masses Back/Spine no CVA tenderness and no thoracic nor lumbar tenderness Extremity Extremity Narrative: Right lower extremity-patient has tenderness palpation over the lateral joint line of the right knee with tenderness over the proximal fibula. There is no ecchymosis or bruising. There is no knee effusion noted. Patient does not tolerate ligamentous exam secondary to pain. He has limited flexion secondary to pain. Normal popliteal as well as dorsal pedal and posterior tibial pulses. General Extremety ED: Negative for edema General Extremity: Negative for edema Neuro oriented x3, CN's II-XII intact bilaterally, no sensory deficits noted and gait normal Sensorium / Orientation: awake, alert, oriented to person, oriented to place and oriented to time Motor Exam: strength 5/5 throughout and strength abnormal Psych mental status grossly normal Skin no rashes or lesions noted and no wounds MDM MDM MDM Narrative Medical decision making narrative: Patient presents with right knee pain after stepping awkwardly over a dog bone. X-rays negative for fracture or dislocation. Patient will be placed in a knee immobilizer and given crutches. I cannot rule out meniscal injury or ligamentous injury. Will be given a prescription for few [place] for pain. Patient will be referred to orthopedics for follow-up. Radiography Diagnostic Testing: Clinical Impression(s) from Imaging Studies Knee X-Ray 08/23/22 09:35 IMPRESSION: Normal x-ray examination of the knee. Electronically Signed: Jann Gregorio MD at 10:24 EDT , 4 view x-rays of the right knee obtained interpreted by myself as no acute fractures or dislocations. Radiology in agreement. Discharge Plan Triage Chief Complaint: Lower Extremity Injury ED Provider: Basilia Alexandra Dx/Rx/DC Orders Clinical Impression: Right knee sprain Instructions: ED Knee Sprain Prescriptions: New hydrocodone-acetaminophen [hydrocodone-acetaminophen] 5-325 mg tablet 1 tab PO Q4H PRN PRN (Reason: Pain) 2 Days Qty: 10 0RF No Action prednisone 20 mg tablet 60 mg PO DAILY Qty: 15 0RF Primary Care Provider: Care Physician,No Primary Referrals: Bridger Montana DO [Med Staff - Active Staff] - 5-7 Days Care Physician,No Primary [Primary Care Provider] - Disposition Disposition: Home, Self Care
[2022-08-23 11:24] VITALS: RESP 18
== END 2022-08-23 11:24 | disposition home or self-care (01) ==
PROVIDERS: Emergency Provider Emergency Medicine; Visit Provider Emergency Medicine
DX: S83.91XA Sprain of unspecified site of right knee, initial encounter (principal); I10 Essential (primary) hypertension; F17.210 Nicotine dependence, cigarettes, uncomplicated; X58.XXXA Exposure to other specified factors, initial encounter
CPT/HCPCS: 73564; 99284; A4216